=== PATIENT | female | born 1990 | race Caucasian/White ===

== ENCOUNTER 2019-03-04 08:02 | Outpatient (CLI) | payer OTHER ==
--- NOTE | 2019-03-04 10:51 | ULT ---
THYROID ULTRASOUND: HISTORY: Thyroid nodule. FINDINGS: Real-time imaging of the right and left lobes of the thyroid were performed. On the right side, the right lobe measured 1.1 x 1.5 x 4 cm and the left lobe 1.2 x 1.1 x 3.8 cm. Both lobes are heterogene ous in appearance. The largest defined nodule on the left is a 7 mm nodule isoechoic to surrounding tissue and a similar-sized nodule on the right. IMPRESSION: Small subcentimeter bilateral thyroid nodules. POS: TPC
== END 2019-03-04 08:03 | disposition home or self-care (01) ==
LOC: SCSULT 08:02
PROVIDERS: ATTEND Internal Medicine
DX: E04.2 Nontoxic multinodular goiter (principal)
CPT/HCPCS: 76536

== ENCOUNTER 2020-03-06 10:07 | Outpatient (CLI) | payer OTHER ==
[2020-03-07 13:17] LABS: SARS-CoV-2 MS2 Positive; SARS-CoV-2 N Gene Negative; SARS-CoV-2 S Gene Negative; SARS-CoV-2 orf1ab Negative
== END 2020-03-06 10:08 | disposition home or self-care (01) ==
LOC: SCSLAB 10:07
PROVIDERS: ATTEND Obstetrics & Gynecology
DX: Z01.812 Encounter for preprocedural laboratory examination (principal); Z11.59 Encounter for screening for other viral diseases
CPT/HCPCS: 87635; U0003

== ENCOUNTER 2020-03-07 12:30 | Day surgery (SDC) | payer OTHER ==
[2020-03-07 13:01] VITALS: BMI 35.4
[2020-03-07 13:04] VITALS: BP 127/73; TEMP 98.5
--- NOTE | 2020-03-07 15:57 | PDOC.LDHP ---
Labor and Delivery H&P Chief complaint: decreased movement HPI: 30yo @38.5 wks presents to L&D for decreased movement. Pt states that this morning she noticed that she was less sore with less back pain upon waking this morning that is typical for her. With this she also noticed that the baby was not moving as much as what she considers typical. She started doing kick counts around 10am and did not notice many so she came in to be evaluated. She states that prior to coming in she had 2 donuts and a soda to help stimulate babies movement. Upon arrival to the hospital she noticed that baby become more active. Denies any recent trauma, illness, vaginal bleeding/ discharge, LOF, dysuria. Current gestational age (weeks): 38 (5) Due date: 03/16/20 Dating criteria: last menstrual period, first trimester ultrasound Grav: 4 Para: 1 OB History Details: Previous delivery for breech presentation 2010 2 previous miscarriages Current complications: none Past Medical History: None Current medications: pre- vitamins Previous surgical history: low tranverse CS, other (lasix) Allergies/Adverse Reactions: Allergies Allergy/AdvReac Type Severity Reaction Status Date / Time No Known Drug Allergies Allergy Verified 03/07/20 13:09 Social history: none - Physical Exam Vital signs reviewed and normal: yes General: NAD Heart: RRR Lungs: nonlabored breathing Abdomen: gravid Extremeties: no edema FHT: category 1, variability present Leary contractions every: NA - Assessment Normal Term Gestation - Plan -: - Pt was monitored on continuous monitoring for >20 minutes. tracing showed to be appropriately reactive for age. Mother remained asymptomatic with normal vitals - Pt and husbands questions were answered Plan: DC pt to home with reactive tracing. Keep previously scheduled repeat in [address] Luke The above findings and plan were discussed with my attending, Dr. Kate Gu. She personally evaluated the patient and agrees with the plan for discharge to home. Rosalio Allen PGY2 Addendum - Attending - Attending Attestation Date/Time: 03/07/20 1850 I personally evaluated the patient and discussed the management with Dr. Allen. I agree with the History, Examination, Assessment and Plan documented above.
== END 2020-03-07 13:50 | disposition home health service (06) ==
LOC: L&D/OP 12:30
PROVIDERS: ATTEND Obstetrics & Gynecology
DX: O36.8130 Decreased fetal movements, third trimester, not applicable or unspecified (principal); O34.211 Maternal care for low transverse scar from previous cesarean delivery; Z3A.38 38 weeks gestation of pregnancy
CPT/HCPCS: 99282

== ENCOUNTER 2020-03-09 05:25 | Inpatient (IN) | payer OTHER ==
[2020-03-09] MEDS: Lactated Ringer's 1,000 ML IV SCH ×3 (05:52→12:16)
[2020-03-09] MEDS ORDERED: Promethazine HCl 25 MG/ML VIAL IM PRN ×2 (05:55→08:15)
[2020-03-09] MEDS ORDERED: Lactated Ringer's 1,000 ML IV SCH (05:55)
[2020-03-09] MEDS ORDERED: hydrALAZINE 20 MG/ML VIAL SLOW IVP PRN ×2 (05:55→08:47)
[2020-03-09] MEDS ORDERED: Ondansetron PF 4 MG/2 ML Vial IVP PRN ×3 (05:55→08:47)
[2020-03-09] MEDS ORDERED: CEFAZOLIN 2 GM in Premix Bag 1 BAG IVPB SCH (06:00)
[2020-03-09] MEDS ORDERED: Bicitra 30 ML UDCUP PO SCH (06:00)
[2020-03-09 06:07] LABS: Hemoglobin 11.8 g/dL (12.0-16.0); Mean Corpuscular HGB CONC 33.2 g/dL (32.0-36.0); Mean Corpuscular Hemoglobin 30.6 pg (27.0-31.0); Mean Corpuscular Volume 92.3 fL (78.0-98.0); Mean Platelet Volume 11.4 fL (7.4-10.4); Platelet Count 129 thou/uL (130-400); Red Blood Cell (RBC) Count 3.85 mill/uL (4.20-5.40); White Blood Cell (WBC) Count 8.5 thou/uL (4.8-10.8)
[2020-03-09 06:08] VITALS: BMI 35.4
[2020-03-09 06:48] LABS: HBSAg Index 0.12 S/CO (0-0.99); Hep B Surf Ag Non-Reactive S/CO (NonReactive); Syphilis Antibody Nonreactive (Nonreactive); Syphilis Antibody Index 0.04 S/CO (<1.00 Non-Reactive)
[2020-03-09] MEDS ORDERED: MORPHINE 5 MG/10 ML PF VIAL ONE (06:48)
[2020-03-09] MEDS ORDERED: Fentanyl 100 MCG/2 ML VIAL ONE (06:48)
[2020-03-09] MEDS ORDERED: Ketorolac Tromethamine 30 MG/ML VIAL ONE (06:49)
[2020-03-09] MEDS ORDERED: Ondansetron PF 4 MG/2 ML Vial ONE ×2 (06:49→11:35)
[2020-03-09] MEDS ORDERED: PHENYLEPHRINE-NS 100 MCG/ML 10 ML SYRINGE ONE (06:49)
[2020-03-09] MEDS ORDERED: EPHEDRINE 25 MG/5 ML SYRINGE ONE (06:49)
[2020-03-09] MEDS ORDERED: Oxytocin 10 UNITS/ML VIAL ONE (06:50)
[2020-03-09] MEDS ORDERED: Naloxone HCl 0.4 mg/ml Vial IV PRN (08:15)
[2020-03-09] MEDS ORDERED: diphenhydrAMINE 50 MG/ML VIAL IVP PRN (08:15)
[2020-03-09] MEDS ORDERED: Promethazine HCl 25 MG SUPP PR PRN (08:15)
[2020-03-09] MEDS ORDERED: Communication Order-Pharmacy FS SCH (08:15)
[2020-03-09] MEDS ORDERED: Naloxone HCl 0.4 mg/ml Vial IVP PRN ×2 (08:15)
[2020-03-09] MEDS ORDERED: Lanolin Ointment 7 GM TUBE TOP PRN (08:47)
[2020-03-09] MEDS ORDERED: Acetaminophen 325 MG TAB PO PRN (08:47)
[2020-03-09] MEDS ORDERED: HYDROcodone/Acetaminophen 5/325 mg Tablet PO PRN (08:47)
[2020-03-09] MEDS ORDERED: Meperidine HCl/PF 25 MG/ML VIAL IM PRN (08:47)
[2020-03-09] MEDS ORDERED: diphenhydrAMINE 25 MG CAP PO PRN (08:47)
[2020-03-09] MEDS ORDERED: Misoprostol 200 MCG TAB PR PRN (08:47)
[2020-03-09] MEDS ORDERED: Adacel (T-DAP) 0.5 ML SYRINGE IM ONE (08:47)
[2020-03-09] MEDS ORDERED: Zolpidem Tartrate 5 MG TAB PO PRN (08:47)
[2020-03-09] MEDS ORDERED: Bisacodyl 10 MG SUPP PR PRN (08:47)
[2020-03-09] MEDS ORDERED: NS / Oxytocin 40 units/1000ml 1,000 ML IV SCH (09:00)
--- NOTE | 2020-03-09 09:37 | OP ---
DATE OF PROCEDURE: 03/09/2020 RESIDENT: Aaliyah Grossman DO. PREOPERATIVE DIAGNOSES: 1. Term intrauterine at 39 weeks. 2. Prior section. 3. Declines trial of labor. POSTOPERATIVE DIAGNOSES: 1. Term intrauterine at 39 weeks. 2. Prior section. 3. Declines trial of labor. PROCEDURE PERFORMED: Repeat low-transverse section. ANESTHESIA: Spinal catheterization. FINDINGS: 1. Vigorous male , 6 pounds and 14 ounces. 7 and 8. 2. Normal uterus, tubes, and ovaries. Minimal scarring and adhesions. COMPLICATIONS: None. SPECIMENS REMOVED: Cord blood. ESTIMATED BLOOD LOSS: Less than 500 mL. DESCRIPTION OF PROCEDURE: After thorough consent and counseling, Mrs. Triplett was taken to the operating room and an adequate level of anesthesia was obtained on spinal catheterization. The patient was prepped and draped in usual sterile fashion for abdominal surgery. A Sanchez was placed in the bladder, which was noted to be draining clear urine. A team time-out was performed per protocol. Attention was then turned to performing the repeat low-transverse section. A Pfannenstiel incision was made and the old scar was excised. The incision was carried sharply to the fascia, which was also sharply incised. The midline was identified and the rectus muscles were retracted laterally. The abdominal peritoneal cavity was entered with usual safeguards carried out. A retractor was placed and a bladder flap was created on the vesicouterine peritoneum. A bladder blade was then placed. A low-transverse incision was made on the well-developed lower uterine segment. Upon entering the amniotic sac, a small amount of clear amniotic fluid was visualized. The infant was noted to be vertex presentation in the occiput anterior position still high in the pelvis. Head was delivered and baby was bulb suctioned on the abdomen. Nuchal cord was reduced x1. Shoulders and body were then delivered in an atraumatic fashion. The cord was doubly clamped and cut and the infant was handed to the pediatric team in attendance for the delivery. The infant was a viable male, weighing 6 pounds 14 ounces with Apgars of 7 and 8 obtained at one and five minutes respectively. Poor respiratory effort was noted, which was addressed with conservative measures. After stabilization, the baby was brought to the mother for contact. The placenta was manually removed from the uterus. The uterus was exteriorized and good tone was noted. The uterine cavity was cleared of any remaining clot and fluid. The low-transverse incision was closed in a running locking ligature of #1 chromic. A second imbricating layer was placed to facilitate strength and hemostasis. Several [id number] ligatures of 0 Vicryl suture were also placed to facilitate strength as the lower segment was very thin. Good hemostasis was noted. The vesicouterine peritoneum was reapproximated to the lower segment with running ligature of 2-0 Monocryl suture. The posterior cul-de-sac and gutters were cleared of clot and fluid. The uterus, fallopian tubes, and ovaries were inspected and noted to be normal in appearance with no pathology identified. There were minimal scarring adhesions. Seprafilm was then applied to the low-transverse incision for adhesion prevention measures. The uterus was returned to the abdomen and good tone and hemostasis was once again noted. Lap, sponge, and needle counts were correct. The peritoneum was closed with a running ligature of 2-0 Vicryl suture. The rectus muscles were reapproximated in the midline with interrupted ligatures of 0 chromic suture. The fascia was then closed with 2 ligatures of 0 Vicryl suture, which were tied in the midline. Good fascial integrity was noted. The incision was irrigated with copious amount of warm normal saline. Hemostasis was obtained with Bovie cauterization. The subcutaneous tissue was closed with interrupted ligatures of 2-0 plain suture. The skin was closed with a subcuticular stitch of 4-0 Monocryl and dressed with Dermabond. A pressure dressing and ice packs were subsequently placed. Lap, sponge, and needle counts were correct x3. Estimated blood loss during the surgical procedure was less than 500 mL. QBL was pending. Following the surgery, debriefing was performed. The patient was taken to the recovery room in good condition. Immediately following the surgery, the patient and family were made aware of the surgical procedure and operative findings. Questions answered to their satisfaction. Job ID: [id number]
[2020-03-09] MEDS ORDERED: HYDROmorphone 2 MG/ML VIAL SLOW IVP PRN (10:21)
[2020-03-09] MEDS ORDERED: HYDROmorphone 0.5 MG/0.5 ML SYRINGE SLOW IVP SCH (10:45)
[2020-03-09] MEDS ORDERED: Promethazine HCl 25 MG/ML VIAL ONE (11:23)
[2020-03-09] MEDS: Prenatal Vitamin 1 TAB PO SCH (12:18)
[2020-03-09] MEDS: Ferrous Sulfate 325 MG TAB PO SCH ×2 (12:18→22:36)
[2020-03-09] MEDS: Docusate Calcium (SURFAK) 240 MG CAP PO SCH ×2 (12:18→22:36)
[2020-03-09] MEDS: Ibuprofen 800 MG TAB PO SCH ×2 (14:09→22:37)
[2020-03-09] MEDS: Ketorolac Tromethamine 30 MG/ML VIAL IVP PRN ×2 (14:45→22:53)
[2020-03-09] MEDS ORDERED: Sodium Chloride 0.9% 10 ML ONE ×2 (21:49→22:47)
[2020-03-09] MEDS: Simethicone Chewable 80 MG TAB PO PRN (21:53)
[2020-03-10] MEDS ORDERED: Sodium Chloride 0.9% 10 ML ONE (05:05)
[2020-03-10] MEDS: Ketorolac Tromethamine 30 MG/ML VIAL IVP PRN (05:15)
[2020-03-10 05:34] LABS: Hemoglobin 11.6 g/dL (12.0-16.0); Mean Corpuscular HGB CONC 33.2 g/dL (32.0-36.0); Mean Corpuscular Hemoglobin 31.3 pg (27.0-31.0); Mean Corpuscular Volume 94.4 fL (78.0-98.0); Mean Platelet Volume 10.7 fL (7.4-10.4); Platelet Count 112 thou/uL (130-400); RBC Distribution Width 12.1 % (11.5-14.5); Red Blood Cell (RBC) Count 3.71 mill/uL (4.20-5.40); White Blood Cell (WBC) Count 9.8 thou/uL (4.8-10.8)
[2020-03-10] MEDS: Ibuprofen 800 MG TAB PO SCH ×3 (08:04→22:14)
[2020-03-10] MEDS: Ferrous Sulfate 325 MG TAB PO SCH (08:47)
[2020-03-10] MEDS: Docusate Calcium (SURFAK) 240 MG CAP PO SCH ×2 (08:48→22:15)
[2020-03-10] MEDS: Simethicone Chewable 80 MG TAB PO PRN ×2 (08:48→16:35)
[2020-03-10] MEDS: Prenatal Vitamin 1 TAB PO SCH (08:48)
[2020-03-10] MEDS: HYDROcodone/Acetaminophen 5/325 mg Tablet PO PRN ×3 (08:48→19:50)
[2020-03-10] MEDS: Lactated Ringer's 1,000 ML IV SCH ×2 (09:01→16:46)
[2020-03-11] MEDS: HYDROcodone/Acetaminophen 5/325 mg Tablet PO PRN ×2 (01:33→10:56)
[2020-03-11] MEDS: Ferrous Sulfate 325 MG TAB PO SCH ×2 (02:37→08:55)
[2020-03-11] MEDS: Lactated Ringer's 1,000 ML IV SCH ×2 (02:37→08:55)
[2020-03-11] MEDS: Ibuprofen 800 MG TAB PO SCH (06:24)
[2020-03-11] MEDS: Docusate Calcium (SURFAK) 240 MG CAP PO SCH (08:56)
[2020-03-11] MEDS: Prenatal Vitamin 1 TAB PO SCH (08:56)
[2020-03-11 11:50] VITALS: BP 126/78; TEMP 97.7
== END 2020-03-11 12:10 | disposition home or self-care (01) | DRG 788 ==
LOC: L&D 05:25 → 3SW 13:09
PROVIDERS: ADMIT Obstetrics & Gynecology; ATTEND Obstetrics & Gynecology
PROC: 10D00Z1 Extraction of Products of Conception, Low, Open Approach (ICD-10-PCS; principal; 2020-03-09)
DX: O34.211 Maternal care for low transverse scar from previous cesarean delivery (principal); Z3A.39 39 weeks gestation of pregnancy; Z37.0 Single live birth
CPT/HCPCS: 36415; 51702; 85027; 86780; 86850; 86900; 86901; 87340; 87635; 99282; J0690; J1170; J1885; J2274; J2405; J2550; J2590; J3010; U0003

== ENCOUNTER 2020-06-10 07:55 | Outpatient (CLI) | payer OTHER ==
--- NOTE | 2020-06-10 10:19 | ULT ---
ULTRASOUND LEFT BREAST LIMITED: DATE: 06/10/2020. HISTORY: A 30-year-old female with palpable lump. COMPARISON: Prior ultrasound images from [facility] of 01/10/2018 (The patient's images are found in a file under the patient's previous last name, Eli, rather than Ioana). TECHNIQUE: A focused ultrasound of the palpable lump in the left upper outer quadrant, near the nipple. FINDINGS: Approximately 3 cm from the nipple, at the 2-3 o'clock position, there is a well-circumscribed, heter ogeneously hypoechoic nodule. It is wider than tall, does not produce acoustic shadowing, and has no internal blood flow. The previously outside report states that this is a lymph node, but there is n o convincing evidence of fatty hilum. This currently measures 0.5 x 0.4 x 0.4 cm, not significantly changed, allowing for slight technical differences. Possibilities include tiny fibroadenoma, tiny he morrhagic cysts, versus intramammary lymph node. No significant interval change. IMPRESSION: 1. BIRADS 2 - benign findings. 2. Followup ultrasound is only recommended if the palpable lump grows. POS: OFF
== END 2020-06-10 07:56 | disposition home or self-care (01) ==
LOC: BICULT 07:55
PROVIDERS: ATTEND Physician Assistant
DX: N63.20 Unspecified lump in the left breast, unspecified quadrant (principal)

== ENCOUNTER 2020-06-18 12:57 | Outpatient (CLI) | payer OTHER ==
--- NOTE | 2020-06-18 15:07 | ULT ---
US Thyroid STANDARD History: Thyroid nodule Comparison: Thyroid ultrasound 2019 Findings: Real-time grayscale and color evaluation of the thyroid was performed. Isthmus measures 3 mm in AP dimension. Right lobe measures 5.1 x 1.6 x 1.4 cm and the left lobe measu res 4.1 x 1.3 x 1.4 cm. In the interpolar region right lobe is a 3 mm colloid cyst, benign. No significant interval growth of the 4 mm hypoechoic interpolar right lobe posterior nodule. In the posterior interpolar region left lobe of the thyroid is a 1.1 x 0.7 x 0.8 cm isoechoic wider t spencer tall nodule which measures as being enlarged from the comparison examination although is likely the difference of measuring technique. This nodule is TIRADS 3: Mildly suspicious. No aspiration or f ollow-up is required. Impression: Similar appearance of the thyroid nodules which do not meet TIRADS criteria for follow-up or aspiration. Transcribed Date/Time: 06/18/2020 4:11 PM
== END 2020-06-18 12:58 | disposition home or self-care (01) ==
LOC: BICULT 12:57
PROVIDERS: ATTEND Physician Assistant
DX: E04.2 Nontoxic multinodular goiter (principal)
CPT/HCPCS: 76536

== ENCOUNTER 2022-03-05 11:51 | Observation (INO) | payer BC, SELFPAY ==
[2022-03-05 12:32] LABS: #Basophils 0.1 thou/uL (0.0-0.2); #Eosinphils 0.3 thou/uL (0.0-0.7); #Lymphocytes 1.8 thou/uL (1.20-3.40); #Monocytes 0.5 thou/uL (0.11-0.59); #Neutrophils 2.4 thou/uL (1.40-6.50); %Lymphocytes 35.1 % (21.0-51.0); %Monocytes 10.5 % (0.0-10.0); %Neutrophils 47.4 % (42.0-75.0); Hemoglobin 12.9 g/dL (12.0-16.0); Mean Corpuscular HGB CONC 32.5 g/dL (32.0-36.0); Mean Corpuscular Hemoglobin 31.5 pg (27.0-31.0); Mean Corpuscular Volume 96.9 fL (78.0-98.0); Mean Platelet Volume 8.7 fL (7.4-10.4); Platelet Count 224 thou/uL (130-400); RBC Distribution Width 11.5 % (11.5-14.5); Red Blood Cell (RBC) Count 4.09 mill/uL (4.20-5.40); White Blood Cell (WBC) Count 5.1 thou/uL (4.8-10.8)
[2022-03-05 12:52] LABS: ALT (SGPT) 11 U/L (8-55); AST (SGOT) 20 U/L (5-34); Albumin 4.2 g/dL (3.5-5.0); Alkaline Phosphatase 62 U/L (40-110); Anion Gap 12 mmol/L (10-20); BUN (Urea Nitrogen) 13 mg/dL (7.0-18.7); Bilirubin, Total 0.7 mg/dL (0.2-1.2); Calc. Creatinine Clearance 0 mL/min (70-130); Calcium 9.2 mg/dL (7.8-10.44); Carbon Dioxide 25 mmol/L (22-29); Chloride 103 mmol/L (98-107); Globulin 2.8 g/dL (2.4-3.5); Glucose 96 mg/dL (70-105); Potassium 4.3 mmol/L (3.5-5.1); Sodium 136 mmol/L (136-145)
[2022-03-05 13:25] LABS: Pregnancy Test - Urine (BHCG) Negative (Negative); Pregu Control Background? CLEAR/WHITE (CLR/WHITE); Pregu Control Bar Appear? YES (CONTROL BAR); Specific Gravity 1.006 (1.002-1.036)
[2022-03-05] MEDS ORDERED: Iopamidol-370 76% 500 ML 1 ML ONE (13:26)
[2022-03-05] MEDS ORDERED: Acetaminophen 325 MG TAB PO PRN (16:55)
[2022-03-05 18:19] VITALS: BMI 28.7
[2022-03-06 05:03] LABS: #Eosinphils 0.3 thou/uL (0.0-0.7); #Lymphocytes 2.4 thou/uL (1.20-3.40); #Monocytes 0.5 thou/uL (0.11-0.59); #Neutrophils 2.5 thou/uL (1.40-6.50); %Basophils 0.8 % (0.0-1.0); %Eosinophils 5.5 % (0.0-10.0); %Lymphocytes 41.7 % (21.0-51.0); %Monocytes 8.8 % (0.0-10.0); %Neutrophils 43.2 % (42.0-75.0); Mean Corpuscular HGB CONC 31.2 g/dL (32.0-36.0); Mean Corpuscular Hemoglobin 30.7 pg (27.0-31.0); Mean Corpuscular Volume 98.3 fL (78.0-98.0); Mean Platelet Volume 8.8 fL (7.4-10.4); Platelet Count 226 thou/uL (130-400); RBC Distribution Width 11.4 % (11.5-14.5); Red Blood Cell (RBC) Count 4.22 mill/uL (4.20-5.40); White Blood Cell (WBC) Count 5.8 thou/uL (4.8-10.8)
[2022-03-06 05:24] LABS: Anion Gap 11 mmol/L (10-20); BUN (Urea Nitrogen) 15 mg/dL (7.0-18.7); Calc. Creatinine Clearance 116 mL/min (70-130); Calcium 8.6 mg/dL (7.8-10.44); Carbon Dioxide 26 mmol/L (22-29); Chloride 105 mmol/L (98-107); Glucose 95 mg/dL (70-105); Potassium 4.2 mmol/L (3.5-5.1); Sodium 138 mmol/L (136-145)
[2022-03-06] MEDS ORDERED: Aspirin 81 mg Enteric Coated Tablet PO SCH ×2 (10:11→10:30)
[2022-03-06] MEDS ORDERED: Magnevist 469MG/ML 20 ML VIAL ONE (13:44)
[2022-03-07] MEDS ORDERED: Aspirin 81 mg Enteric Coated Tablet PO SCH (09:00)
[2022-03-07 12:10] VITALS: BP 109/75; TEMP 98
[2022-03-07] MEDS ORDERED: traMADol HCl 50 MG TAB PO PRN (14:00)
== END 2022-03-07 16:00 | disposition home or self-care (01) ==
LOC: ERS 11:51 → 2SW 15:59
PROVIDERS: ADMIT Internal Medicine; ATTEND Internal Medicine
DX: R20.0 Anesthesia of skin (principal); H53.8 Other visual disturbances; Z79.899 Other long term (current) drug therapy; Z20.822 Contact with and (suspected) exposure to COVID-19
CPT/HCPCS: 36415; 70496; 70498; 70551; 70553; 80048; 80053; 81025; 83880; 85025; 86140; 94760; A9579; G0378; Q9967; U0003; U0005

== ENCOUNTER 2022-11-09 13:04 | Outpatient (CLI) | payer BC | END 2022-11-09 13:05 | disposition home or self-care (01) | LOC: BICMAMMO 13:04 | PROVIDERS: ATTEND Internal Medicine | DX: N63.20 Unspecified lump in the left breast, unspecified quadrant (principal) | CPT/HCPCS: 77066; G0279 ==

== ENCOUNTER 2024-08-01 09:12 | Emergency (ER) | payer BC, OTHER ==
[2024-08-01 09:41] LABS: #Basophils 0.05 10x3/uL (0.0-0.2); %Basophils 0.8 % (0.0-1.0); %Eosinophils 2.4 % (0.0-10.0); %Lymphocytes 28.9 % (21.0-51.0); %Monocytes 11.5 % (0.0-10.0); %Neutrophils 56.2 % (42.0-75.0); Hematocrit 39.5 % (36.0-47.0); Mean Corpuscular HGB CONC 32.9 g/dL (32.0-36.0); Mean Corpuscular Hemoglobin 30.7 pg (27.0-31.0); Mean Corpuscular Volume 93.2 fL (78.0-98.0); Mean Platelet Volume 10.8 fL (7.4-10.4); Platelet Count 278 10x3/uL (130-400); RBC Distribution Width 12.2 % (11.5-14.5); Red Blood Cell (RBC) Count 4.24 mill/uL (4.20-5.40)
[2024-08-01 10:04] LABS: ALT (SGPT) 14 U/L (8-55); AST (SGOT) 21 U/L (5-34); Albumin 4.2 g/dL (3.5-5.0); Alkaline Phosphatase 59 U/L (40-110); Anion Gap 11 mmol/L (10-20); BUN (Urea Nitrogen) 12 mg/dL (7.0-18.7); Bilirubin, Total 0.5 mg/dL (0.2-1.2); Calc. Creatinine Clearance 0 mL/min (70-130); Calcium 9.3 mg/dL (7.8-10.44); Carbon Dioxide 27 mmol/L (22-29); Chloride 102 mmol/L (98-107); Estimated GFR 94; Globulin 2.9 g/dL (2.4-3.5); Glucose 100 mg/dL (70-105); Potassium 4.2 mmol/L (3.5-5.1); Protein, Total 7.1 g/dL (6.0-8.3); Sodium 136 mmol/L (136-145)
[2024-08-01 10:26] LABS: Bilirubin Negative (Negative); Blood, Urine Negative (Negative); Glucose, Urine (Dipstick) Negative (Negative); Ketone, Urine Negative (Negative); Leukocyte Negative (Negative); Nitrite Negative (Negative); Protein, Urine (Dipstick) Negative (Neg-Trace); Urobilinogen 0.2 mg/dL (Less than 2)
[2024-08-01 10:29] LABS: Clarity Clear (Clear); Specific Gravity, Urine 1.005 (1.002-1.036)
[2024-08-01 10:30] LABS: Pregnancy Test - Urine (BHCG) Negative (Negative); Pregu Control Background? CLEAR/WHITE (CLR/WHITE); Pregu Control Bar Appear? YES (CONTROL BAR); Specific Gravity 1.005 (1.002-1.036)
[2024-08-01] MEDS ORDERED: Pantoprazole 40 MG VIAL ONE (10:31)
[2024-08-01 10:32] LABS: Bacteria/HPF None Seen HPF (None Seen); CAUTI Indications for Culture Pelvic or flank pain; RBC/HPF None Seen HPF (0-3); WBC/HPF None Seen HPF (0-3)
[2024-08-01 10:33] LABS: Urine Culture Reflex No No
== END 2024-08-01 12:40 | disposition home or self-care (01) ==
LOC: ERS 09:12
DX: K92.1 Melena (principal); R10.32 Left lower quadrant pain; K58.9 Irritable bowel syndrome, unspecified
CPT/HCPCS: 36415; 74177; 80053; 81001; 81025; 83690; 85025; 96374; J2470